=== PATIENT | male | born 1995 | race Caucasian/White ===

== ENCOUNTER 2024-03-18 10:43 | Emergency (ER) | payer OTHER ==
[~2024-03-18] VITALS: Ht 190.5 cm; Wt 70.3 kg
[~2024-03-18 10:43] MED LIST: AMOX500 PO; AZIT200SU PO; Amoxicillin500 MG PO; PHENERGAN W/CODEINE; PRED20 PO; PROCODE120 PO; Veetids 500500 MG PO; [UNRECOGNIZED DRUG - OTHER]
[2024-03-18 11:34] VITALS: BP 148/98
[2024-03-18] MEDS ORDERED: Norco 5-325 Ta1 EACH PO (11:37)
[2024-03-18] MEDS ORDERED: AMOCLA875 PO (11:37)
== END 2024-03-18 12:22 | disposition home or self-care (01) ==
LOC: ER 10:43
DX: K04.7 Periapical abscess without sinus (principal); F17.290 Nicotine dependence, other tobacco product, uncomplicated
CPT/HCPCS: 99282